=== PATIENT | female | born 1995 ===

== ENCOUNTER 2018-03-05 12:00 | Emergency (ER) | payer OTHER ==
[2018-03-05 12:11] VITALS: BP 141/76; PULSE 81; RESP 20; TEMP 98.3; O2SAT 99
--- NOTE | 2018-03-05 12:25 | C.PDOC ---
History Of Present Illness 22 y/o female presents to the ER complaining of left foot pain which has been present for the past 3 days. Patient states that she stomped on her foot. Patient reports that she took Ibuprofen without relief last night. Denies having weakness and numbness. Time Seen by Provider: 03/05/18 12:17 Chief Complaint (Nursing): Lower Extremity Problem/Injury History Per: Patient History/Exam Limitations: no limitations Onset/Duration Of Symptoms: Days Current Symptoms Are (Timing): Still Present Severity: Moderate Past Medical History Reviewed: Historical Data, Nursing Documentation, Vital Signs Vital Signs: Last Vital Signs Temp 98.3 F 03/05/18 12:08 Pulse 81 03/05/18 12:08 Resp 20 03/05/18 12:08 BP 141/76 03/05/18 12:08 Pulse Ox 99 03/05/18 12:08 - Medical History PMH: Migraine Surgical History: Cholecystectomy, (x2) - [facility] Procedures SPINAL TAP (12/25/14) Family History: States: No Known Family Hx - Social History Hx Alcohol Use: Yes Hx Substance Use: No - Immunization History Hx Tetanus Toxoid Vaccination: No Hx Influenza Vaccination: No Hx Pneumococcal Vaccination: No Review Of Systems Except As Marked, All Systems Reviewed And Found Negative. Musculoskeletal: Positive for: Foot Pain (left foot pain) Neurological: Negative for: Weakness, Numbness Physical Exam - Physical Exam Appears: Non-toxic, No Acute Distress Skin: Normal Color, Warm, Dry Head: Atraumatic, Normacephalic Eye(s): bilateral: Normal Inspection Nose: Normal Oral Mucosa: Moist Neck: Supple Chest: Symmetrical Extremity: Normal ROM, No Tenderness, No Pedal Edema, No Calf Tenderness, No Deformity, No Swelling Pulses: Left Dorsalis Pedis: Normal Neurological/Psych: Oriented x3, Normal Speech ED Course And Treatment O2 Sat by Pulse Oximetry: 99 (RA) Pulse Ox Interpretation: Normal Medical Decision Making Medical Decision Making: Impression: Left Foot Injury Plan: * X-Ray-Left Foot Foot xray shows no fracture, osseous lesions, or other abnormality Patient is ambulatory without distress. Recommend rest, ice, ibuprofen for pain and can follow up with podiatry Disposition Counseled Patient/Family Regarding: Diagnosis, Need For Followup - Disposition Referrals: Moose Charles III, MD [Staff Provider] - Disposition: HOME/ ROUTINE Disposition Time: 12:45 Condition: GOOD Additional Instructions: Your xray was normal, no fracture. Please apply ice to area 15 minutes three times a day. Take Motrin as needed for pain every 6 hours, with food to not upset stomach. Follow up with orthopedic if pain persists over one week. 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 - Scribe Statement The provider has reviewed the documentation as recorded by the Kamibe Alvaro Saenz Provider Attestation All medical record entries made by the Kamibe were at my direction and personally dictated by me. I have reviewed the chart and agree that the record accurately reflects my personal performance of the history, physical exam, medical decision making, and the department course for this patient. I have also personally directed, reviewed, and agree with the discharge instructions and disposition.
--- NOTE | 2018-03-05 16:27 | RAD ---
Date of service: 03/05/2018 PROCEDURE: Left Foot Radiographs. HISTORY: foot sprain COMPARISON: None. FINDINGS: BONES: Normal. No fracture. JOINTS: Normal. SOFT TISSUES: Normal. OTHER FINDINGS: None. IMPRESSION: Normal left foot radiographs.
== END 2018-03-05 13:03 | disposition home or self-care (01) ==
LOC: C.ER 12:00
DX: S93.602A Unspecified sprain of left foot, initial encounter (principal); X58.XXXA Exposure to other specified factors, initial encounter

== ENCOUNTER 2018-07-08 09:22 | Emergency (ER) | payer OTHER ==
[2018-07-08 10:11] LABS: SQUAMOUS EPITHIAL 11 /hpf (0-5); URINE BILIRUBIN NEGATIVE (NEGATIVE); URINE BLOOD NEGATIVE (NEGATIVE); URINE CLARITY Hazy (Clear); URINE COLOR Yellow (YELLOW); URINE GLUCOSE (UA) NORMAL (Normal); URINE LEUKOCYTE ESTERASE NEG Leu/uL (Negative); URINE PROTEIN NEGATIVE (NEGATIVE); URINE UROBILINOGEN NORMAL mg/dL (0.2-1.0)
[2018-07-08 10:18] LABS: HCG,QUALITATIVE URINE NEGATIVE (NEGATIVE)
--- NOTE | 2018-07-08 10:21 | C.PDOC ---
History Of Present Illness 22 y/o female, with no medical problems or past surgical history, presents to ED complaining of a 3 day history of constant chest pain. Patient denies any SOB, palpitations, dizziness, diaphoresis, vomiting, or other symptoms. Time Seen by Provider: 07/08/18 09:35 Chief Complaint (Nursing): Chest Pain History Per: Patient History/Exam Limitations: no limitations Onset/Duration Of Symptoms: Days Current Symptoms Are (Timing): Still Present Past Medical History Reviewed: Historical Data, Nursing Documentation, Vital Signs Vital Signs: Last Vital Signs Temp 98.3 F 07/08/18 09:39 Pulse 76 07/08/18 09:39 Resp 20 07/08/18 09:39 BP 131/79 07/08/18 09:39 Pulse Ox 96 07/08/18 09:39 - Medical History PMH: Migraine Surgical History: Cholecystectomy, (x2) - [facility] Procedures SPINAL TAP (12/25/14) Family History: States: No Known Family Hx - Social History Hx Alcohol Use: Yes Hx Substance Use: No - Immunization History Hx Tetanus Toxoid Vaccination: No Hx Influenza Vaccination: No Hx Pneumococcal Vaccination: No Review Of Systems Except As Marked, All Systems Reviewed And Found Negative. Constitutional: Negative for: Fever, Chills, Sweats Cardiovascular: Positive for: Chest Pain. Negative for: Palpitations Respiratory: Negative for: Shortness of Breath Gastrointestinal: Negative for: Vomiting Neurological: Negative for: Dizziness Physical Exam - Physical Exam Appears: Non-toxic, No Acute Distress Skin: Warm, Dry Head: Atraumatic, Normacephalic Eye(s): bilateral: Normal Inspection Oral Mucosa: Moist Neck: Supple Chest: Tenderness (reproducible left-sided chest wall tenderness) Cardiovascular: Rhythm Regular, No Murmur Respiratory: Normal Breath Sounds, No Rales, No Rhonchi, No Wheezing Extremity: Bilateral: Atraumatic, Normal Color And Temperature, Normal ROM Neurological/Psych: Oriented x3, Normal Speech, Normal Cognition ED Course And Treatment - Laboratory Results Lab Results: Urine Color Yellow (YELLOW) 07/08/18 09:52 Urine Clarity Hazy (Clear) 07/08/18 09:52 Urine pH 6.0 (5.0-8.0) 07/08/18 09:52 Ur Specific [place] 1.021 (1.003-1.030) 07/08/18 09:52 Urine Protein Negative mg/dL (NEGATIVE) 07/08/18 09:52 Urine Glucose (UA) Normal mg/dL (Normal) 07/08/18 09:52 Urine Ketones Negative mg/dL (NEGATIVE) 07/08/18 09:52 Urine Blood Negative (NEGATIVE) 07/08/18 09:52 Urine Nitrate Negative (NEGATIVE) 07/08/18 09:52 Urine Bilirubin Negative (NEGATIVE) 07/08/18 09:52 Urine Urobilinogen Normal mg/dL (0.2-1.0) 07/08/18 09:52 Ur Leukocyte Esterase Neg Nupur/uL (Negative) 07/08/18 09:52 Urine WBC (Auto) 3 /hpf (0-5) 07/08/18 09:52 Ur Squamous Epith Cells 11 /hpf (0-5) H 07/08/18 09:52 Urine HCG, Qual Negative (NEGATIVE) 07/08/18 09:52 Urine HCG, Qual Negative (NEGATIVE) 07/08/18 09:52 Urine POC: Negative ECG: Interpreted By Me ECG Rhythm: Sinus Rhythm ECG Interpretation: Normal Rate From EC O2 Sat by Pulse Oximetry: 96 (RA) Pulse Ox Interpretation: Normal - Radiology CXR: Interpreted by Me CXR Interpretation: Yes: No Acute Disease - Other Rad CXR X-Ray: Read By Radiologist Interpretation: FINDINGS: LUNGS: No focal consolidation. Please note that chest x-ray has limited sensitivity for the detection of pulmonary masses. PLEURA: No significant pleural effusion identified. No definite pneumothorax . CARDIOVASCULAR: The cardiomediastinal silhouette appears within normal limits of size. No atherosclerotic calcification present. OSSEOUS STRUCTURES: No acute osseous abnormality identified. VISUALIZED UPPER ABDOMEN: Unremarkable. OTHER FINDINGS: None. IMPRESSION: No focal consolidation. Progress Note: Treated with motrin 600 mg PO. On re-evaluation lungs clear in co distress Reassessment Condition: Improved Medical Decision Making Medical Decision Making: Plan: --EKG --Chest XR --UA --Urine preg Disposition Counseled Patient/Family Regarding: Studies Performed, Diagnosis, Need For Followup, Rx Given - Disposition Referrals: [facility] [Outside] [facility] [Outside] Disposition: HOME/ ROUTINE Disposition Time: 11:00 Condition: STABLE Additional Instructions: Follow up with your PMD or clinic for further evaluation Return to ED if any increase symptoms Prescriptions: Ibuprofen [Motrin] 1 tab PO TID PRN #30 tab PRN Reason: Pain Instructions: Costochondritis Forms: [facility] (Bangladeshi) - POA Present On Arrival: None - Clinical Impression Clinical Impression: Chest pain, Chest wall pain - 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 - Scribe Statement The provider has reviewed the documentation as recorded by the Scribe Eliana Oscar All medical record entries made by the Kamibeula were at my direction and personally dictated by me. I have reviewed the chart and agree that the record accurately reflects my personal performance of the history, physical exam, medical decision making, and the department course for this patient. I have also personally directed, reviewed, and agree with the discharge instructions and disposition.
--- NOTE | 2018-07-08 10:40 | RAD ---
HISTORY: SOB COMPARISON: None available. TECHNIQUE: Chest PA and lateral FINDINGS: LUNGS: No focal consolidation. Please note that chest x-ray has limited sensitivity for the detection of pulmonary masses. PLEURA: No significant pleural effusion identified. No definite pneumothorax . CARDIOVASCULAR: The cardiomediastinal silhouette appears within normal limits of size. No atherosclerotic calcification present. OSSEOUS STRUCTURES: No acute osseous abnormality identified. VISUALIZED UPPER ABDOMEN: Unremarkable. OTHER FINDINGS: None. IMPRESSION: No focal consolidation.
[2018-07-08 11:17] VITALS: BP 114/73; PULSE 70; RESP 18; TEMP 97.2
[2018-07-08 16:43] VITALS: O2SAT 96
== END 2018-07-08 11:19 | disposition home or self-care (01) ==
LOC: C.ER 09:22
DX: R07.89 Other chest pain (principal)